=== PATIENT | male | born 1985 | race Caucasian/White ===

== ENCOUNTER 2019-02-27 11:44 | Emergency (ER) | payer BC, OTHER ==
[~2019-02-27] VITALS: Ht 193 cm; Wt 180.7 kg
[2019-02-27 13:54] VITALS: BP 124/60
== END 2019-02-27 13:58 | disposition home or self-care (01) ==
LOC: ED 13:52
DX: K42.9 Umbilical hernia without obstruction or gangrene (principal); E66.9 Obesity, unspecified; Z68.42 Body mass index [BMI] 45.0-49.9, adult
CPT/HCPCS: 36415; 76705; 80053; 85025; 99284